=== PATIENT | male | born 1990 | race Hispanic/Latino ===

== ENCOUNTER 2022-11-08 00:52 | Inpatient (IN) | payer OTHER ==
[2022-11-08] VITALS (27 sets, daily range): BP systolic 136–181; BP diastolic 89–125
[~2022-11-08] VITALS: Ht 177.8 cm; Wt 97.1 kg
[2022-11-08] MEDS ORDERED: ONDANSETRON 4MG INJ IVP ONE (01:30)
[2022-11-08] MEDS ORDERED: MORPHINE 4 MG SYG IVP ONE (01:30)
[2022-11-08] MEDS ORDERED: 0.9%NACL 1000ML 1,000 ML IV ONE (01:30)
[2022-11-08] MEDS ORDERED: 0.9%NACL 1000ML 2,000 ML IV ONE (01:30)
[2022-11-08 01:48] LABS: BASOPHILS % (AUTO) 0.4 % (0.0-5.0); EOSINOPHILS % (AUTO) 0.1 % (0.0-8.0); HEMATOCRIT 43.9 % (42-54); LYMPHOCYTES % (AUTO) 15.4 % (21.0-51.0); MEAN CORPUSCULAR HEMOGLOBIN 31.6 pg (27.0-33.0); MEAN CORPUSCULAR HGB CONC 35.1 g/dL (32.0-36.0); MONOCYTES % (AUTO) 7.5 % (3.0-13.0); NEUTROPHILS % (AUTO) 76.3 % (40.0-77.0); PLATELET COUNT (AUTO) 304 K/uL (130-400); RED BLOOD CELL COUNT(AUTO) 4.88 MIL/uL (4.50-6.20); RED CELL DISTRIBUTION WIDTH 12.8 % (11.0-15.5); WHITE BLOOD COUNT (AUTO) 16.5 K/uL (4.8-10.8)
[2022-11-08 02:01] LABS: ALBUMIN 4.3 g/dL (3.5-5.0); CREATININE 1.2 mg/dL (0.5-1.5); TOTAL PROTEIN, SERUM 9.1 g/dL (6.0-8.3)
[2022-11-08 02:03] LABS: POTASSIUM 2.6 mmol/L (3.5-5.1)
[2022-11-08 02:04] LABS: INR 0.96 (0.85-1.15); PROTHROMBIN TIME 10.5 SEC (9.6-11.6)
[2022-11-08 02:06] LABS: PARTIAL THROMBOPLASTIN TIME 29.1 SEC (26.3-35.5)
[2022-11-08] MEDS ORDERED: IOHEXOL 350 MG/ML 100ML INFUS..BTL IV ONE (02:24)
[2022-11-08] MEDS ORDERED: POTASSIUM BICARB/CIT AC 25 MEQ TABLET.EFF PO ONE (02:30)
[2022-11-08] MEDS ORDERED: HYDRALAZINE 20MG/ML VIAL IV ONE ×2 (03:00→04:30)
[2022-11-08] MEDS ORDERED: ZOSYN 3.375GM +NS 50ML IVPB ONE (04:00)
[2022-11-08] MEDS ORDERED: VANCOMYCIN 1G VIAL IVPB ONE (04:00)
[2022-11-08 04:02] LABS: APPEARANCE,URINE CLEAR (CLEAR); BILIRUBIN,URINE NEGATIVE (NEGATIVE); COLOR,URINE COLORLESS (YELLOW); GLUCOSE, URINE (UA) NEGATIVE (NEGATIVE); KETONES,URINE 20 mg/dL (NEGATIVE); LEUKOCYTE ESTERASE ,URINE NEGATIVE Leu/uL (NEGATIVE); NITRATE,URINE NEGATIVE (NEGATIVE); OCCULT BLOOD,URINE NEGATIVE (NEGATIVE); PH,URINE 6.5 (5.0-8.0); PROTEIN,URINE NEGATIVE (NEGATIVE); UROBILINOGEN,URINE 0.2 mg/dL (0.2-1.0)
[2022-11-08] MEDS ORDERED: HYDROMORPHONE 1 MG INJ IVP ONE (04:30)
[2022-11-08] MEDS ORDERED: VANCOMYCIN 1G/250ML KIT 250 ML IV ONE (04:58)
[2022-11-08] MEDS ORDERED: VANCOMYCIN PROTOCOL PER PHARMACY IV PRN (05:00)
[2022-11-08] MEDS ORDERED: ACETAMINOPHEN 325 MG TAB PO PRN ×2 (05:00)
[2022-11-08] MEDS ORDERED: ONDANSETRON 4MG INJ IV PRN (05:00)
[2022-11-08] MEDS ORDERED: LACTULOSE 20 GM/30 ML UDCUP PO PRN (05:00)
[2022-11-08] MEDS: ZOSYN 3.375GM+NS 50ML 50 ML IVPB SCH ×3 (05:00→21:01)
[2022-11-08] MEDS: 0.9%NACL 1000ML 1,000 ML IV SCH ×2 (05:02→15:00)
[2022-11-08] MEDS ORDERED: MAGNESIUM 2GM PREMIX 50ML 50 ML IV PRN (06:00)
[2022-11-08] MEDS ORDERED: LIDOCAINE HCL-MPF 1% 2ML VIAL IV PRN (06:00)
[2022-11-08] MEDS: KCL 20 MEQ ERTAB PO PRN (06:23)
[2022-11-08] MEDS ORDERED: HYDROMORPHONE 1 MG INJ IVP SCH (08:30)
[2022-11-08] MEDS: FAMOTIDINE 20MG VIAL IV SCH ×2 (10:05→21:01)
[2022-11-08] MEDS: VANCOMYCIN 1.25 GM/250 ML BAG 250 ML IV SCH ×2 (10:06→21:01)
[2022-11-08] MEDS: POTASSIUM CHLORIDE 10MEQ/100ML 100 ML IV PRN ×2 (10:12→16:22)
[2022-11-08] MEDS ORDERED: MIDAZOLAM HCL 1 MG/ML 2ML VIAL ONE (11:44)
[2022-11-08] MEDS ORDERED: ONDANSETRON 4MG INJ ONE (11:50)
[2022-11-08] MEDS ORDERED: GLYCOPYRROLATE 1 MG/5 ML SYRINGE ONE (11:50)
[2022-11-08] MEDS ORDERED: DEXAMETHASONE SOD PHOSPHATE 10MG/ML 1ML VIAL ONE (11:50)
[2022-11-08] MEDS ORDERED: LIDOCAINE PF 100MG/5ML (2%) SYRINGE 5ML ONE ×2 (11:50→11:51)
[2022-11-08] MEDS ORDERED: NEOSTIGMINE 5MG/5ML SYR IV ONE (11:50)
[2022-11-08] MEDS ORDERED: PROPOFOL 10 MG/ML 20ML VIAL IV ONE (11:50)
[2022-11-08] MEDS ORDERED: SUCCINYLCHOLINE 200MG/10ML SYR ONE (11:50)
[2022-11-08] MEDS ORDERED: ROCURONIUM 10MG/1ML SYR 10 MG/ML ML ONE (11:51)
[2022-11-08] MEDS ORDERED: FENTANYL CITRATE PF 50 MCG/1 ML 2ML VIAL ONE (11:51)
[2022-11-08] MEDS ORDERED: MEPERIDINE-PF 25 MG/ML SYG ONE ×2 (12:00→12:11)
[2022-11-08] MEDS: MORPHINE 2 MG SYG IV PRN ×3 (14:30→16:24)
[2022-11-08] MEDS ORDERED: METOPROLOL TARTRATE 25 MG TAB PO SCH (21:00)
[2022-11-08] MEDS: POTASSIUM CHLORIDE 10% ELIXIR 20 MEQ/15 ML UDCUP PO PRN (21:47)
[2022-11-09] VITALS (7 sets, daily range): BP systolic 151–168; BP diastolic 74–124
[2022-11-09] MEDS: 0.9%NACL 1000ML 1,000 ML IV SCH (01:00)
[2022-11-09] MEDS: POTASSIUM CHLORIDE 10% ELIXIR 20 MEQ/15 ML UDCUP PO PRN ×2 (02:25→10:17)
[2022-11-09] MEDS: ZOSYN 3.375GM+NS 50ML 50 ML IVPB SCH ×3 (05:10→21:00)
[2022-11-09 05:38] LABS: BASOPHILS % (AUTO) 0.5 % (0.0-5.0); EOSINOPHILS % (AUTO) 0.6 % (0.0-8.0); HEMATOCRIT 40.3 % (42-54); LYMPHOCYTES % (AUTO) 22.2 % (21.0-51.0); MEAN CORPUSCULAR HEMOGLOBIN 31.2 pg (27.0-33.0); MEAN CORPUSCULAR VOLUME 91.8 fL (79-99); MONOCYTES % (AUTO) 10.2 % (3.0-13.0); NEUTROPHILS % (AUTO) 66.2 % (40.0-77.0); PLATELET COUNT (AUTO) 293 K/uL (130-400); RED BLOOD CELL COUNT(AUTO) 4.39 MIL/uL (4.50-6.20); RED CELL DISTRIBUTION WIDTH 13.2 % (11.0-15.5); WHITE BLOOD COUNT (AUTO) 9.6 K/uL (4.8-10.8)
[2022-11-09 05:50] LABS: ALBUMIN 3.4 g/dL (3.5-5.0); CREATININE 1.1 mg/dL (0.5-1.5); MAGNESIUM 2.2 mg/dL (1.80-2.40); POTASSIUM 3.1 mmol/L (3.5-5.1); TOTAL PROTEIN, SERUM 7.7 g/dL (6.0-8.3)
[2022-11-09] MEDS ORDERED: KCL 20 MEQ ERTAB PO ONE (07:00)
[2022-11-09] MEDS: FAMOTIDINE 20MG VIAL IV SCH ×2 (10:08→20:59)
[2022-11-09] MEDS: METOPROLOL TARTRATE 25 MG TAB PO SCH ×2 (10:09→20:59)
[2022-11-09] MEDS: VANCOMYCIN 1.25 GM/250 ML BAG 250 ML IV SCH ×2 (10:14→21:00)
[2022-11-09] MEDS: MORPHINE 2 MG SYG IV PRN (21:14)
[2022-11-10] VITALS (7 sets, daily range): BP systolic 136–173; BP diastolic 89–115
[2022-11-10] MEDS: ZOSYN 3.375GM+NS 50ML 50 ML IVPB SCH ×4 (05:04→22:04)
[2022-11-10 05:35] LABS: HEMATOCRIT 41.2 % (42-54); MEAN CORPUSCULAR HEMOGLOBIN 31.7 pg (27.0-33.0); MEAN CORPUSCULAR HGB CONC 33.7 g/dL (32.0-36.0); MEAN CORPUSCULAR VOLUME 93.8 fL (79-99); RED BLOOD CELL COUNT(AUTO) 4.39 MIL/uL (4.50-6.20); RED CELL DISTRIBUTION WIDTH 13.1 % (11.0-15.5)
[2022-11-10 05:51] LABS: ALBUMIN 3.5 g/dL (3.5-5.0); CRP QUANTITATIVE 43.4 mg/L (0.00-9.0); MAGNESIUM 2.2 mg/dL (1.80-2.40); POTASSIUM 3.5 mmol/L (3.5-5.1); TOTAL PROTEIN, SERUM 7.4 g/dL (6.0-8.3)
[2022-11-10] MEDS: KCL 20 MEQ ERTAB PO PRN (06:42)
[2022-11-10] MEDS: VANCOMYCIN 1.25 GM/250 ML BAG 250 ML IV SCH ×3 (10:03→22:04)
[2022-11-10] MEDS: METOPROLOL TARTRATE 25 MG TAB PO SCH ×2 (10:04→18:32)
[2022-11-10] MEDS: FAMOTIDINE 20MG VIAL IV SCH ×2 (10:04→20:37)
[2022-11-10] MEDS ORDERED: KETO10TA2 PO (12:45)
[2022-11-10] MEDS ORDERED: METO25 PO (12:45)
[2022-11-10] MEDS ORDERED: METR-172 PO (12:45)
[2022-11-10] MEDS ORDERED: LEVO-70 PO (12:45)
[2022-11-10] MEDS ORDERED: LOSA1TAB37 PO (12:51)
[2022-11-10] MEDS ORDERED: LOSARTAN/HYDROCHLOROTHIAZIDE 50-12.5MG TABLET PO ONE (13:00)
[2022-11-10] MEDS ORDERED: CLONIDINE HCL 0.1 MG TABLET PO SCH (19:00)
[2022-11-10] MEDS ORDERED: LOSARTAN 50 MG TABLET PO SCH (22:00)
[2022-11-11] VITALS (7 sets, daily range): BP systolic 136–157; BP diastolic 81–108
[2022-11-11] MEDS: ZOSYN 3.375GM+NS 50ML 50 ML IVPB SCH (05:00)
[2022-11-11] MEDS: METOPROLOL TARTRATE 25 MG TAB PO SCH (08:18)
[2022-11-11] MEDS: FAMOTIDINE 20MG VIAL IV SCH (08:18)
[2022-11-11] MEDS: VANCOMYCIN 1.25 GM/250 ML BAG 250 ML IV SCH (08:19)
[2022-11-11] MEDS ORDERED: LOSARTAN 50 MG TABLET PO SCH ×2 (09:00)
[2022-11-11] MEDS ORDERED: METOPROLOL TARTRATE 50 MG TAB PO SCH (09:00)
[2022-11-11] MEDS ORDERED: HYDROCHLOROTHIAZIDE 25 MG TABLET PO SCH (09:00)
[2022-11-11] MEDS ORDERED: LOSA1TAB54 PO (12:15)
[2022-11-11] MEDS ORDERED: METO50TA18 PO (12:15)
== END 2022-11-11 13:50 | disposition home or self-care (01) | DRG 854 ==
LOC: EDH 00:52 → EDHIP 00:53 → 3DH 05:59
PROVIDERS: ADMIT Internal Medicine; ATTEND Internal Medicine
PROC: 0D9P0ZZ Drainage of Rectum, Open Approach (ICD-10-PCS; principal; 2022-11-08 11:48)
DX: A41.9 Sepsis, unspecified organism (principal); E87.1 Hypo-osmolality and hyponatremia; L02.31 Cutaneous abscess of buttock; K61.2 Anorectal abscess; Z20.822 Contact with and (suspected) exposure to COVID-19; E87.6 Hypokalemia; F17.210 Nicotine dependence, cigarettes, uncomplicated; I10 Essential (primary) hypertension
CPT/HCPCS: 36415; 74177; 80053; 80202; 81003; 83605; 83735; 84132; 84145; 85025; 85027; 85610; 85730; 86140; 87040; 87070; 87076; 87077; 87088; 87186; 87635; G0378; J0330; J0360; J1100; J1170; J2001; J2175; J2250; J2270; J2405; J2543; J2704; J2710; J3010; J3370; J3490; J7030; Q9967

== ENCOUNTER 2023-10-22 16:59 | Inpatient (IN) | payer OTHER ==
[~2023-10-22] VITALS: Ht 177.8 cm; Wt 90.6 kg
[~2023-10-22 16:59] MED LIST: KETO10TA2 PO; LEVO-70 PO; LOSA1TAB54 PO; METO50TA18 PO; METR-172 PO
[2023-10-22 19:55] LABS: BASOPHILS # (AUTO) 0.04 K/uL (0.00-0.20); BASOPHILS % (AUTO) 0.3 % (0.0-5.0); EOSINOPHILS # (AUTO) 0.03 K/uL (0.00-0.70); EOSINOPHILS % (AUTO) 0.2 % (0.0-8.0); HEMATOCRIT 44.3 % (42-54); IMMATURE GRANULOCYTE ABSOLUTE 0.06 K/uL (0-1); LYMPHOCYTES # (AUTO) 2.2 K/uL (1.0-4.8); LYMPHOCYTES % (AUTO) 16.5 % (21.0-51.0); MEAN CORPUSCULAR HEMOGLOBIN 31.6 pg (27.0-33.0); MEAN CORPUSCULAR HGB CONC 34.8 g/dL (32.0-36.0); MEAN CORPUSCULAR VOLUME 90.8 fL (79-99); MONOCYTES # (AUTO) 0.7 K/uL (0.1-1.0); MONOCYTES % (AUTO) 5.5 % (3.0-13.0); NEUTROPHILS # (AUTO) 10.2 K/uL (1.8-7.7); PLATELET COUNT (AUTO) 301 K/uL (130-400); RED BLOOD CELL COUNT(AUTO) 4.88 MIL/uL (4.50-6.20); RED CELL DISTRIBUTION WIDTH 13.3 % (11.0-15.5); WHITE BLOOD COUNT (AUTO) 13.2 K/uL (4.8-10.8)
[2023-10-22] MEDS ORDERED: KETOROLAC 30MG VIAL (30MG/ML) IVP ONE (20:00)
[2023-10-22] MEDS ORDERED: 0.9%NACL 1000ML 1,000 ML IV ONE (20:00)
[2023-10-22 20:08] LABS: ALBUMIN 3.9 g/dL (3.5-5.0)
[2023-10-22 20:19] LABS: BILIRUBIN,TOTAL 0.7 mg/dL (0.2-1.0); CREATININE 1.2 mg/dL (0.5-1.5); TOTAL PROTEIN, SERUM 8.2 g/dL (6.0-8.3)
[2023-10-22 20:21] LABS: POTASSIUM 2.7 mmol/L (3.5-5.1)
[2023-10-22] MEDS ORDERED: ZOSYN 3.375GM +NS 50ML IV ONE (20:30)
[2023-10-22] MEDS ORDERED: IOHEXOL 350 MG/ML 100ML INFUS..BTL IV ONE (21:05)
[2023-10-22] MEDS ORDERED: MORPHINE 2 MG SYG IV PRN (22:30)
[2023-10-22] MEDS ORDERED: ONDANSETRON 4MG INJ IV PRN (22:30)
[2023-10-22] MEDS ORDERED: VANCOMYCIN PROTOCOL PER PHARMACY IV SCH (22:30)
[2023-10-22] MEDS ORDERED: MAGNESIUM 2GM PREMIX 50ML 50 ML IV PRN (22:30)
[2023-10-22] MEDS ORDERED: ACETAMINOPHEN 325 MG TAB PO PRN ×2 (22:30)
[2023-10-22] MEDS: 0.9%NACL 1000ML 1,000 ML IV SCH ×2 (22:30→22:41)
[2023-10-22] MEDS: POTASSIUM CHLORIDE 20MEQ/100ML 100 ML IV PRN (22:53)
[2023-10-23] VITALS (25 sets, daily range): BP systolic 126–178; BP diastolic 53–130; PULSE 82–100; RESP 10–19; O2SAT 99
[2023-10-23] MEDS: VANCOMYCIN 1G/250ML KIT 250 ML IV SCH ×3 (00:07→20:43)
[2023-10-23] MEDS: POTASSIUM CHLORIDE 20MEQ/100ML 100 ML IV PRN ×3 (02:46→13:56)
[2023-10-23] MEDS: ZOSYN 3.375GM+NS 50ML 50 ML IV SCH ×2 (04:33→13:29)
[2023-10-23 08:05] LABS: BASOPHILS # (AUTO) 0.02 K/uL (0.00-0.20); BASOPHILS % (AUTO) 0.2 % (0.0-5.0); EOSINOPHILS # (AUTO) 0.03 K/uL (0.00-0.70); EOSINOPHILS % (AUTO) 0.3 % (0.0-8.0); HEMATOCRIT 43.7 % (42-54); IMMATURE GRANULOCYTE ABSOLUTE 0.04 K/uL (0-1); LYMPHOCYTES # (AUTO) 2.3 K/uL (1.0-4.8); MEAN CORPUSCULAR HEMOGLOBIN 31.5 pg (27.0-33.0); MEAN CORPUSCULAR HGB CONC 34.6 g/dL (32.0-36.0); MONOCYTES # (AUTO) 0.7 K/uL (0.1-1.0); MONOCYTES % (AUTO) 6.2 % (3.0-13.0); NEUTROPHILS # (AUTO) 8.2 K/uL (1.8-7.7); NEUTROPHILS % (AUTO) 72.9 % (40.0-77.0); PLATELET COUNT (AUTO) 301 K/uL (130-400); RED CELL DISTRIBUTION WIDTH 13.4 % (11.0-15.5); WHITE BLOOD COUNT (AUTO) 11.3 K/uL (4.8-10.8)
[2023-10-23 08:21] LABS: INR 0.95 (0.85-1.15); PROTHROMBIN TIME 11.1 SEC (9.6-11.6)
[2023-10-23 09:16] LABS: ERYTHROCYTE SEDIMENTATION RATE 13 MM/HR (0-15)
[2023-10-23 09:25] LABS: ALBUMIN 3.6 g/dL (3.5-5.0); CREATININE 1.2 mg/dL (0.5-1.5); POTASSIUM 3.3 mmol/L (3.5-5.1); TOTAL PROTEIN, SERUM 7.8 g/dL (6.0-8.3)
[2023-10-23] MEDS ORDERED: METOPROLOL TARTRATE 1 MG/ML 5ML VIAL IV PRN (12:00)
[2023-10-23] MEDS ORDERED: METOPROLOL TARTRATE 50 MG TAB PO ONE (12:00)
[2023-10-23] MEDS: 0.9%NACL 1000ML 1,000 ML IV SCH ×5 (13:29→23:13)
[2023-10-23] MEDS: FAMOTIDINE 20MG VIAL IV SCH ×2 (13:31→21:05)
[2023-10-23] MEDS ORDERED: LIDOCAINE 1%-EPI 1:100,000 20 ML VIAL ONE (18:58)
[2023-10-23] MEDS ORDERED: CEFAZOLIN SODIUM 1 GM VIAL ONE (18:58)
[2023-10-23] MEDS ORDERED: BUPIVACAINE/PF 0.25% 30ML VIAL IJ ONE (18:58)
[2023-10-23] MEDS ORDERED: VANCOMYCIN 1G/250ML KIT 250 ML IV ONE (20:31)
[2023-10-23] MEDS: METOPROLOL TARTRATE 50 MG TAB PO SCH (21:01)
[2023-10-23] MEDS ORDERED: PHARMACY COMMUNICATION MISC SCH (21:30)
[2023-10-23] MEDS ORDERED: HYDROMORPHONE 1 MG INJ IVP PRN (22:00)
[2023-10-23] MEDS ORDERED: OXYCODONE/ACETAMIN 5/325MG TAB PO PRN (22:00)
[2023-10-24] MEDS: ZOSYN 3.375GM+NS 50ML 50 ML IV SCH ×3 (00:11→15:11)
[2023-10-24] MEDS ORDERED: KCL 20 MEQ ERTAB PO PRN (00:30)
[2023-10-24] MEDS ORDERED: POTASSIUM CHLORIDE 10% ELIXIR 20 MEQ/15 ML UDCUP PO PRN (00:30)
[2023-10-24] MEDS ORDERED: CLONIDINE HCL 0.1 MG TABLET PO ONE (02:00)
[2023-10-24] MEDS: VANCOMYCIN 1G/250ML KIT 250 ML IV SCH ×2 (03:11→11:52)
[2023-10-24] MEDS: 0.9%NACL 1000ML 1,000 ML IV SCH (03:16)
[2023-10-24 03:45] VITALS: BP 154/95; PULSE 88; RESP 18
[2023-10-24 06:20] LABS: BASOPHILS # (AUTO) 0.03 K/uL (0.00-0.20); BASOPHILS % (AUTO) 0.3 % (0.0-5.0); HEMATOCRIT 41.6 % (42-54); IMMATURE GRANULOCYTE ABSOLUTE 0.05 K/uL (0-1); LYMPHOCYTES # (AUTO) 1.8 K/uL (1.0-4.8); MEAN CORPUSCULAR HEMOGLOBIN 31.4 pg (27.0-33.0); MEAN CORPUSCULAR HGB CONC 34.1 g/dL (32.0-36.0); MONOCYTES # (AUTO) 0.5 K/uL (0.1-1.0); NEUTROPHILS # (AUTO) 9.1 K/uL (1.8-7.7); NEUTROPHILS % (AUTO) 79.3 % (40.0-77.0); PLATELET COUNT (AUTO) 273 K/uL (130-400); RED BLOOD CELL COUNT(AUTO) 4.52 MIL/uL (4.50-6.20); RED CELL DISTRIBUTION WIDTH 13.1 % (11.0-15.5); WHITE BLOOD COUNT (AUTO) 11.5 K/uL (4.8-10.8)
[2023-10-24 06:34] LABS: BILIRUBIN,TOTAL 0.6 mg/dL (0.2-1.0); POTASSIUM 3.4 mmol/L (3.5-5.1)
[2023-10-24 06:35] LABS: ALBUMIN 3.5 g/dL (3.5-5.0); CREATININE 1.2 mg/dL (0.5-1.5); TOTAL PROTEIN, SERUM 7.5 g/dL (6.0-8.3)
[2023-10-24 08:00] VITALS: O2SAT 99
[2023-10-24 08:34] VITALS: BP 157/99; PULSE 77; RESP 18
[2023-10-24] MEDS: FAMOTIDINE 20MG VIAL IV SCH (09:39)
[2023-10-24] MEDS: METOPROLOL TARTRATE 50 MG TAB PO SCH (09:39)
[2023-10-24 12:31] VITALS: BP 176/124; PULSE 82; RESP 18
[2023-10-24] MEDS ORDERED: LOSARTAN 50 MG TABLET PO SCH (14:00)
[2023-10-24] MEDS ORDERED: METO50TA18 PO (14:07)
[2023-10-24] MEDS ORDERED: LOSA100T59 PO (14:07)
[2023-10-24] MEDS ORDERED: LOSARTAN 100 MG TABLET PO ONE (14:30)
[2023-10-24 17:26] VITALS: BP 165/110; PULSE 88; RESP 18
== END 2023-10-24 18:20 | disposition home or self-care (01) | DRG 346 ==
LOC: EDH 16:59 → EDHIP 17:00 → UNDOADMIN 22:12 → EDHIP 22:12 → 3DH 10-23 09:26
PROVIDERS: ADMIT Hospitalist; ATTEND Hospitalist
PROC: 0D9P0ZZ Drainage of Rectum, Open Approach (ICD-10-PCS; principal; 2023-10-23 19:05)
DX: K61.1 Rectal abscess (principal); E66.01 Morbid (severe) obesity due to excess calories; L05.91 Pilonidal cyst without abscess; K62.89 Other specified diseases of anus and rectum; E87.6 Hypokalemia; F12.90 Cannabis use, unspecified, uncomplicated; I10 Essential (primary) hypertension; N20.0 Calculus of kidney; Z68.31 Body mass index [BMI] 31.0-31.9, adult; Z79.899 Other long term (current) drug therapy
CPT/HCPCS: 36415; 74177; 80053; 80202; 82550; 83735; 84132; 84145; 84484; 85025; 85610; 85651; 85730; 87040; 87070; 87076; 87077; 87186; 87205; 93005; G0378; J0690; J1885; J2270; J2543; J3370; J3480; J3490; J7030; Q9967; A4452; J0665